=== PATIENT | female | born 1970 | race Caucasian/White ===

== ENCOUNTER 2023-05-20 15:00 | Emergency (ER) | payer OTHER ==
[2023-05-20 15:19] VITALS: BMI 27.4
[2023-05-20] MEDS ORDERED: ACETAMINOPHEN 1000 MG/100 ML BAG IVPB ONE (15:36)
[2023-05-20] MEDS ORDERED: SODIUM CHLORIDE 1,000 ML IV STA (15:36)
[2023-05-20] MEDS ORDERED: ACETAMINOPHEN INJECTION 100 ML IVPB ONE (15:55)
[2023-05-20 16:27] LABS: EPI CELLS 30 /uL (0-25.1); HCG,QUALITATIVE URINE Negative; HYALINE CASTS 2 /uL (0-3.1); PH,URINE 6.5 (5.0-8.0); URINE APPEARANCE CLEAR; URINE BACTERIA 119 /uL (0-1359); URINE BILIRUBIN NEGATIVE (NEGATIVE); URINE COLOR YELLOW; URINE GLUCOSE (UA) NEGATIVE (NEGATIVE); URINE KETONE TRACE (NEGATIVE); URINE LEUK ESTERASE 2+ (NEGATIVE); URINE NITRITE NEGATIVE (NEGATIVE); URINE PROTEIN NEGATIVE (NEGATIVE); URINE RBC 104 /uL (0-23.9); URINE UROBILINOGEN 0.2 mg/dL (0.2-1.0); URINE WBC 48 /uL (0-25.8)
[2023-05-20 16:28] LABS: BASO % 0.2 % (0-2.0); EOS % 0.2 % (0-4.5); HEMATOCRIT 37.1 % (32.4-45.2); HEMOGLOBIN 12.2 GM/dL (10.7-15.3); LYMPH % 12.1 % (8-40); MCH 28.1 pg (25.7-33.7); MCHC 32.8 g/dl (32.0-36.0); MEAN CELL VOLUME 85.7 fl (80-96); MEAN PLT VOLUME 10.1 fl (7.5-11.1); MONO % 4.7 % (3.8-10.2); NEUT % 82.8 % (42.8-82.8); PLATELET COUNT 222 10^3/uL (134-434); RBC 4.33 M/mm3 (3.60-5.2); RDW 13.5 % (11.6-15.6); WHITE BLOOD COUNT 12.5 K/mm3 (4.0-10.0)
[2023-05-20 16:39] LABS: ALBUMIN 4.1 g/dl (3.4-5.0); BLOOD UREA NITROGEN 14.3 mg/dL (7-18); CALCIUM 9.3 mg/dL (8.5-10.1)
[2023-05-20 16:42] LABS: CREATININE 1.2 mg/dL (0.55-1.3)
[2023-05-20 16:44] LABS: BILIRUBIN,TOTAL 0.4 mg/dL (0.2-1); TOT PROT 8.1 g/dl (6.4-8.2)
[2023-05-20 18:17] VITALS: BP 107/74; PULSE 72; RESP 12; TEMP 96.9
== END 2023-05-20 20:21 | disposition home or self-care (01) ==
LOC: JER 15:00
PROC: 3E033GC Introduction of Other Therapeutic Substance into Peripheral Vein, Percutaneous Approach (ICD-10-PCS; principal; 2023-05-20)
DX: N20.0 Calculus of kidney (principal)
CPT/HCPCS: 36415; 74177-TC; 80053; 81003; 83690; 84703; 85025; 87086; 96361; 96374; 99285-25; Q9967